=== PATIENT | male | born 1955 | race Caucasian/White ===

== ENCOUNTER 2021-02-05 08:45 | Inpatient (IN) | payer MEDICARE, MEDICAID ==
[2021-02-06 13:08] VITALS: BMI 26.6
[2021-02-10] MEDS ORDERED: ceFAZolin 2 GM/DEX 5% 100 ML BAG ONE ×3 (06:36→22:37)
[2021-02-10] MEDS ORDERED: Clopidogrel Bisulfate 75 MG TAB ONE (06:38)
[2021-02-10] MEDS ORDERED: Aspirin Chewable 81 MG TAB ONE (06:38)
[2021-02-10] MEDS ORDERED: Protamine Sulfate 50 MG/5 ML VIAL ONE (06:44)
[2021-02-10] MEDS ORDERED: Heparin 5,000 UNITS/ML VIAL ONE (06:44)
[2021-02-10] MEDS ORDERED: Clopidogrel Bisulfate 75 MG TAB PO SCH (06:45)
[2021-02-10] MEDS ORDERED: ceFAZolin Sodium/D5W 2 GM in Premix Bag 1 BAG IVPB SCH (06:45)
[2021-02-10] MEDS ORDERED: Aspirin Chewable 81 MG TAB PO SCH (06:45)
[2021-02-10] MEDS ORDERED: Midazolam HCl 2 mg/2 ml Vial ONE (07:01)
[2021-02-10] MEDS ORDERED: Fentanyl 100 MCG/2 ML VIAL ONE (07:19)
[2021-02-10] MEDS ORDERED: Phenylephrine 10 MG/ML VIAL ONE (07:20)
[2021-02-10] MEDS ORDERED: PROPOFOL 200 MG/20 ML VIAL ONE (07:34)
[2021-02-10] MEDS ORDERED: Ondansetron PF 4 MG/2 ML Vial ONE (07:34)
[2021-02-10] MEDS ORDERED: Glycopyrrolate 0.2 MG/ML 5 ML SYRINGE ONE (07:34)
[2021-02-10] MEDS ORDERED: Rocuronium Bromide 10 MG/ML (10ML VIAL) ONE (07:34)
[2021-02-10] MEDS ORDERED: PHENYLEPHRINE-NS 100 MCG/ML 10 ML SYRINGE ONE (07:34)
[2021-02-10] MEDS ORDERED: Bupivacaine PF 0.5% 30 ML VIAL ONE (08:33)
[2021-02-10] MEDS ORDERED: EPINEPHrine 1 MG/ML AMP ONE (08:33)
[2021-02-10] MEDS ORDERED: Lorazepam 1 MG TAB PO PRN (08:57)
[2021-02-10] MEDS ORDERED: Phenylephrine 40 MG in Sodium Chloride 0.9% 250 ML 250 ML IVPB PRN ×2 (08:57→09:07)
[2021-02-10] MEDS ORDERED: HYDROcodone/Acetaminophen 5/325 mg Tablet PO PRN (08:57)
[2021-02-10] MEDS ORDERED: Non-Formulary Item 1 EACH (Ipratropium/Albuterol Sulfate [Combivent Respimat] 120 PUFF In INH PRN (08:57)
[2021-02-10] MEDS ORDERED: Ondansetron PF 4 MG/2 ML Vial IVP PRN (08:57)
[2021-02-10] MEDS ORDERED: Docusate 100 MG CAP PO PRN (08:57)
[2021-02-10] MEDS ORDERED: Fentanyl 100 MCG/2 ML VIAL SLOW IVP PRN (08:57)
[2021-02-10] MEDS ORDERED: cloNIDine 0.1 MG TAB PO PRN (08:57)
[2021-02-10] MEDS: Phenylephrine 40 MG in Sodium Chloride 0.9% 250 ML 250 ML IVPB PRN ×2 (09:45→22:58)
[2021-02-10] MEDS: Amlodipine 5 MG TAB PO SCH ×2 (11:05→19:40)
[2021-02-10] MEDS: Aspirin Chewable 81 MG TAB PO SCH (11:05)
[2021-02-10] MEDS: Clopidogrel Bisulfate 75 MG TAB PO SCH (11:06)
[2021-02-10] MEDS: Sodium Chloride 0.9% 1,000 ML IV SCH (11:06)
[2021-02-10] MEDS: ceFAZolin Sodium/D5W 2 GM in Premix Bag 1 BAG IVPB SCH ×2 (15:33→22:57)
[2021-02-10] MEDS ORDERED: Acetaminophen 500 MG TAB PO PRN (15:58)
[2021-02-10] MEDS: Ibuprofen 800 MG TAB PO SCH (17:45)
[2021-02-10] MEDS ORDERED: Atorvastatin Calcium 40 MG TAB ONE (19:54)
[2021-02-10] MEDS: Atorvastatin Calcium 40 MG TAB PO SCH (20:00)
[2021-02-11] MEDS: Ibuprofen 800 MG TAB PO SCH ×3 (02:17→21:45)
[2021-02-11] MEDS ORDERED: HYDROcodone/Acetaminophen 5/325 mg Tablet ONE (05:13)
[2021-02-11] MEDS ORDERED: ceFAZolin 2 GM/DEX 5% 100 ML BAG ONE (05:25)
[2021-02-11] MEDS: ceFAZolin Sodium/D5W 2 GM in Premix Bag 1 BAG IVPB SCH (05:29)
[2021-02-11] MEDS ORDERED: Clopidogrel Bisulfate 75 MG TAB ONE (08:54)
[2021-02-11] MEDS: Clopidogrel Bisulfate 75 MG TAB PO SCH (09:40)
[2021-02-11] MEDS: Sodium Chloride 0.9% 1,000 ML IV SCH (09:40)
[2021-02-11] MEDS: Phenylephrine 40 MG in Sodium Chloride 0.9% 250 ML 250 ML IVPB PRN (09:40)
[2021-02-11] MEDS: Aspirin Chewable 81 MG TAB PO SCH (10:15)
[2021-02-11] MEDS: Pseudoephedrine HCl 30 MG TAB PO SCH ×3 (11:05→17:22)
[2021-02-11] MEDS: Midodrine HCl 5 MG TAB PO SCH ×2 (17:36→21:46)
[2021-02-11] MEDS ORDERED: Midodrine HCl 5 MG TAB PO SCH (21:00)
[2021-02-11] MEDS: Atorvastatin Calcium 40 MG TAB PO SCH (21:45)
[2021-02-12] MEDS: Pseudoephedrine HCl 30 MG TAB PO SCH ×2 (00:18→05:08)
[2021-02-12] MEDS: Ibuprofen 800 MG TAB PO SCH ×3 (05:11→23:11)
[2021-02-12] MEDS ORDERED: Ondansetron PF 4 MG/2 ML Vial IVP PRN (07:37)
[2021-02-12] MEDS ORDERED: Docusate 100 MG CAP PO PRN (07:38)
[2021-02-12] MEDS ORDERED: Phenylephrine 40 MG in Sodium Chloride 0.9% 250 ML 250 ML IVPB PRN (07:39)
[2021-02-12] MEDS ORDERED: Acetaminophen 500 MG TAB PO PRN (07:41)
[2021-02-12] MEDS: Sodium Chloride 0.9% 1,000 ML IV SCH ×2 (07:52→18:10)
[2021-02-12] MEDS: Lorazepam 1 MG TAB PO PRN (07:53)
[2021-02-12] MEDS: Aspirin Chewable 81 MG TAB PO SCH (07:53)
[2021-02-12] MEDS: Clopidogrel Bisulfate 75 MG TAB PO SCH (07:54)
[2021-02-12] MEDS: Midodrine HCl 5 MG TAB PO SCH ×3 (07:54→21:12)
[2021-02-12] MEDS ORDERED: Clopidogrel Bisulfate 75 MG TAB PO SCH (09:00)
[2021-02-12] MEDS: Atorvastatin Calcium 40 MG TAB PO SCH (21:12)
[2021-02-13] MEDS: Ibuprofen 800 MG TAB PO SCH ×3 (06:15→23:06)
[2021-02-13] MEDS ORDERED: Phenylephrine 40 MG in Sodium Chloride 0.9% 250 ML 250 ML IVPB PRN (06:23)
[2021-02-13] MEDS: Midodrine HCl 5 MG TAB PO SCH ×3 (08:53→21:08)
[2021-02-13] MEDS: Clopidogrel Bisulfate 75 MG TAB PO SCH (08:53)
[2021-02-13] MEDS: Aspirin Chewable 81 MG TAB PO SCH (08:53)
[2021-02-13] MEDS: Lorazepam 1 MG TAB PO PRN (08:55)
[2021-02-13] MEDS: Sodium Chloride 0.9% 1,000 ML IV SCH ×2 (09:05→18:40)
[2021-02-13] MEDS: Atorvastatin Calcium 40 MG TAB PO SCH (21:08)
[2021-02-14] MEDS: Ibuprofen 800 MG TAB PO SCH ×3 (06:24→21:04)
[2021-02-14] MEDS: Aspirin Chewable 81 MG TAB PO SCH (07:25)
[2021-02-14] MEDS: Clopidogrel Bisulfate 75 MG TAB PO SCH (07:25)
[2021-02-14] MEDS: Midodrine HCl 5 MG TAB PO SCH ×3 (07:25→21:04)
[2021-02-14] MEDS: Lorazepam 1 MG TAB PO PRN (07:25)
[2021-02-14] MEDS ORDERED: diphenhydrAMINE 12.5 MG/5 ML UDCUP PO SCH (14:15)
[2021-02-14] MEDS: Atorvastatin Calcium 40 MG TAB PO SCH (21:04)
[2021-02-15] MEDS: Ibuprofen 800 MG TAB PO SCH (06:43)
[2021-02-15] MEDS: Aspirin Chewable 81 MG TAB PO SCH (08:46)
[2021-02-15] MEDS: Clopidogrel Bisulfate 75 MG TAB PO SCH (08:46)
[2021-02-15] MEDS: Lorazepam 1 MG TAB PO PRN (08:48)
[2021-02-15] MEDS: Midodrine HCl 5 MG TAB PO SCH (08:54)
[2021-02-15 11:18] VITALS: BP 110/58; TEMP 98.8
== END 2021-02-15 13:26 | DRG 36 ==
LOC: 2NO 02-10 06:15 → PACU-TCU 02-10 19:27 → CCU 02-11 18:03 → 3SE 02-14 12:22 → 2SW 02-15 01:20
PROVIDERS: ADMIT Thoracic Surgery (Cardiothoracic Vascular Surgery); ATTEND Thoracic Surgery (Cardiothoracic Vascular Surgery)
PROC: 037J3DZ Dilation of Left Common Carotid Artery with Intraluminal Device, Percutaneous Approach (ICD-10-PCS; principal; 2021-02-10)
DX: I65.23 Occlusion and stenosis of bilateral carotid arteries (principal); Z88.2 Allergy status to sulfonamides; Z88.8 Allergy status to other drugs, medicaments and biological substances
CPT/HCPCS: 76000; 93306; 94640; C1876; J0171; J1644; J2250; J2370; J2405; J2704; J2720; J3010; J7050; J7620; Q0163; S0020

== ENCOUNTER 2021-02-05 09:19 | Outpatient (CLI) | payer MEDICARE, MEDICAID ==
[2021-02-05 11:15] LABS: Anion Gap 14 mmol/L (10-20); BUN (Urea Nitrogen) 21 mg/dL (8.4-25.7); Calc. Creatinine Clearance 0 mL/min (70-130); Calcium 10.5 mg/dL (7.8-10.44); Carbon Dioxide 30 mmol/L (23-31); Chloride 102 mmol/L (98-107); Glucose 111 mg/dL (80-115); Potassium 4.9 mmol/L (3.5-5.1); Sodium 141 mmol/L (136-145)
[2021-02-05 11:59] LABS: Hemoglobin 14.3 g/dL (13.5-17.5); Mean Corpuscular Hemoglobin 27.7 pg (27.0-33.0); Mean Corpuscular Volume 89.2 fl (81.2-95.1); Mean Platelet Volume 10.6 fl (7.4-10.4); Platelet Count 261 10x3/uL (150-450); RBC Distribution Width 13.2 % (11.5-14.5); Red Blood Cell (RBC) Count 5.17 10x6/uL (4.32-5.72); White Blood Cell (WBC) Count 8.8 10x3/uL (3.5-10.5)
[2021-02-05 17:00] LABS: SARS-CoV-2 PCR by NAA Not Detected (NotDetected)
== END 2021-02-05 09:20 | disposition home or self-care (01) ==
LOC: LABBT 09:19
PROVIDERS: ATTEND Thoracic Surgery (Cardiothoracic Vascular Surgery)
DX: Z01.812 Encounter for preprocedural laboratory examination (principal); Z20.822 Contact with and (suspected) exposure to COVID-19
CPT/HCPCS: 80048; 85027; U0003; U0005

== ENCOUNTER 2023-07-13 16:50 | Emergency (ER) | payer OTHER, MEDICAID ==
[2023-07-13] MEDS ORDERED: cloNIDine 0.1 MG TAB ONE ×2 (17:16→18:20)
== END 2023-07-13 19:24 ==
LOC: ERS 16:50
DX: I10 Essential (primary) hypertension (principal); E78.5 Hyperlipidemia, unspecified; J44.9 Chronic obstructive pulmonary disease, unspecified; Z87.891 Personal history of nicotine dependence; Z79.82 Long term (current) use of aspirin; Z79.899 Other long term (current) drug therapy
CPT/HCPCS: 99283